=== PATIENT | female | born 1970 | race Two or more races ===

== ENCOUNTER 2025-01-03 09:56 | Day surgery (SDC) | payer SELFPAY, MEDICAID ==
[2025-01-01 11:27] LABS: Basophils # (auto) 0 10 ^3/uL (0-0.2); Basophils % (auto) 0.7 % (0.0-2.0); Eosinophils # (auto) 0.1 10 ^3/uL (0-0.8); Eosinophils % (auto) 1.2 % (0.0-7.0); Hematocrit 38.2 % (36.0-46.0); Hemoglobin 13.1 g/dL (12.2-16.2); Lymphocytes # (auto) 1.1 10 ^3/uL (0.4-5.4); Lymphocytes % (auto) 18.6 % (10.0-50.0); Mean Corpuscular Hemoglobin 33.8 pg (28.0-32.0); Mean Corpuscular Hgb Conc. 34.3 g/dL (32.0-36.0); Mean Corpuscular Volume 98.3 fL (80.0-100.0); Monocytes # (auto) 0.3 10 ^3/uL (0-1.3); Monocytes % (auto) 5.7 % (0.0-12.0); Neutrophils # (auto) 4.4 10 ^3/uL (1.6-8.6); Neutrophils % (auto) 73.8 % (37.0-80.0); Platelet Count (auto) 230 10^3/uL (140-450); Red Blood Cells 3.89 10^6/uL (4.0-5.20); Red Cell Distribution Width 12.6 % (11.8-14.3); White Blood Cell 5.9 10^3/uL (4.4-10.8)
[2025-01-01 11:30] LABS: INR 0.98 (0.9-1.15); Partial Thromboplastin Time 27.5 SEC (24.5-34.5); Prothrombin Time 10.4 sec (9.3-11.8)
[2025-01-01 11:39] LABS: Alanine Aminotransferase 19 U/L (7-40); Alkaline Phosphatase 71 U/L (46-116); Anion Gap 7 (5-15); BUN/Creatinine Ratio 10.2 (10.0-20.0); Blood Urea Nitrogen 10 mg/dL (9-23); Calcium 9.8 mg/dL (8.7-10.4); Carbon Dioxide 26 mmol/L (20-31); Glucose 103 mg/dL (74-106); Sodium 140 mmol/L (136-145); Total Protein 7.7 g/dL (5.7-8.2)
[2025-01-01 11:40] LABS: Aspartate Aminotransferase 16 U/L (13-40)
[2025-01-01 11:41] LABS: Chloride 107 mmol/L (98-107)
[~2025-01-03] VITALS: Ht 167.6 cm; Wt 61.2 kg
[~2025-01-03 09:56] MED LIST: ALBUAER3 IN; FLUT110A8 IN
[2025-01-03 11:04] VITALS: TEMP 98.6
[2025-01-03] MEDS ORDERED: SODIUM CHLORIDE LOCK 10 ML ONE (11:05)
[2025-01-03 12:51] VITALS: O2SAT 100
[2025-01-03] MEDS: MIDAZOLAM HCL 5 MG/ML-1ML VIAL ONE (12:55)
[2025-01-03] MEDS: fentaNYL CITRATE 100 MCG/2 ML VL ONE (12:55)
[2025-01-03] MEDS: diphenhdrAMINE HCL 50 MG/1 ML VL ONE (12:55)
[2025-01-03 13:19] VITALS: O2SAT 100
--- NOTE | 2025-01-03 13:24 | DVHOP2 ---
Operative Report DATE OF OPERATION: 01/03/25 PROCEDURE: Diagnostic Colonoscopy. PREOPERATIVE INDICATION: The patient is a 54 -year-old female undergoing colonoscopy for colon cancer screening POSTOPERATIVE DIAGNOSES: 1. Ksom-[id number]-wxoofxhu tortuosity of the colon especially involving the flexures and the transverse colon 2. 1+ internal hemorrhoids otherwise normal examination up to the cecum and terminal ileum PROCEDURE PERFORMED BY: Zac Sanchez M.D. SCOPE: Olympus videocolonoscope. ASA CLASS: 2. PREOPERATIVE MEDICATIONS: Versed 4 mg, Fentanyl 100 mcg, Benadryl 50 mg PROCEDURE IN DETAIL: After obtaining an informed consent, the patient was placed on left lateral decubitus position. She was then sedated with the above medications. A rectal examination was performed that was normal. The colonoscope was then passed through the anus into the rectosigmoid and through the descending, transverse, and ascending colon up to the cecum with visualization of the appendiceal orifice, base of the cecum and the ileocecal valve. The colonoscope was then withdrawn. The distal 3-5 cm of the terminal ileum were normal The colonoscope was then withdrawn with careful visualization of all sims There were no polyps or masses. There was no colitis or diverticular disease. Patient had [id number] tortuosity of the colon especially involving the transverse colon and both the splenic and the hepatic flexures There was no clear-cut diverticular disease. On retroflexion and straight on view the patient had 1+ internal hemorrhoids The patient tolerated the procedure well without difficulty. WITHDRAWAL TIME: 6 minutes QUALITY OF THE PREP: [place] Bowel Prep score: 9. COMPLICATIONS : None SPECIMENS: None DISPOSITION: Stable D/C to home PLAN: 1. Repeat colonoscopy in 10 years 2. Resume GI soft diet advance as tolerated 3. Increase fluid and fiber intake 4. Local anorectal hemorrhoidal care 5. Outpatient follow up with me in 4-6 weeks to review results and discuss further management ZAC SANCHEZ MD Jan 03, 2025 13:24
[2025-01-03 14:00] VITALS: BP 121/73; PULSE 63; RESP 15; O2SAT 99
== END 2025-01-03 14:09 | disposition home or self-care (01) ==
LOC: GI 09:56
PROVIDERS: ATTEND Internal Medicine Gastroenterology
DX: Z12.11 Encounter for screening for malignant neoplasm of colon (principal); K64.0 First degree hemorrhoids; Q43.8 Other specified congenital malformations of intestine; Z98.51 Tubal ligation status; Z98.890 Other specified postprocedural states; J45.909 Unspecified asthma, uncomplicated
CPT/HCPCS: 36415; 45378; 80053; 84702; 85025; 85610; 85730; J1200; J2250; J3010; J7030; 99152